=== PATIENT | female | born 1945 | race Two or more races ===

== ENCOUNTER → 2017-02-17 | Day surgery (SDC) | payer MEDICARE, MEDICAID ==
[~2017-02-17] MED LIST: FLAX10003 PO; HYDROmorphone 2 MG/ML VIAL IV PRN; IV RINGERS,LACTATED 1000ML 1,000 ML IV SCH; LEVO50TA PO; LIDOCAINE 1% PF 2 ML VIAL. ID PRN; LIDOCAINE 2% PF Vial for OR 5 ML VIAL. ONE; MORPHINE SULFATE 2 MG/ML DISP.SYRIN. IV PRN; MULT-658 PO; ONDANSETRON PF 4 MG/2 ML VIAL. IV PRN; PROCHLORPERAZINE 10 MG/2 ML VIAL. IV PRN; PROPOFOL 40 ML IV ONE; fentaNYL PF VIAL 100 MCG/2 ML VIAL IV PRN
--- NOTE | 2017-02-17 09:10 | PDOC1 ---
HISTORY & PHYSICAL H&P Sara Hopson 1945 01/25/2017 03:50 PM 05/08 R[facility] [address] [place] [address] Ph. [phone] Patient: Sara Hopson Date of : 1945 Date: 01/25/2017 3:50 PM Visit Type: Consult This 71 year old female presents for Screening colonoscopy. History of Present Illness: 1. Screening colonoscopy No prior screening. Denies risk factors. Pertinent negatives include abdominal pain, change in bowel habits, change in stool caliber, constipation, decreased appetite, diarrhea, melena, nausea, rectal bleeding, vomiting, weight gain and weight loss. Additional information: No family history of colon cancer , No family history of Crohn's/colitis and No NSAID/ASA use. PROBLEM LIST: Problem Description Onset Date Chronic Notes Knee pain, left 12/17/2014 Vitamin D deficiency 12/17/2014 Dyslipidemia 12/17/2014 PAST MEDICAL/SURGICAL HISTORY (Detailed) Disease/disorder Onset Date Management Date Comments Bilateral tubal ligation Cataract extraction 2007 OBSTETRIC HISTORY: Not currently . Medications (Active): Started Medication Directions Instruction Stopped 06/15/2015 Centrum Silver 0.4 mg-300 mcg-250 mcg tablet one tablet daily 08/19/2016 flaxseed oil 1,000 mg capsule one capsule twice a day. 06/26/2015 Synthroid 50 mcg tablet take 1 tablet by oral route every day 06/15/2015 Tylenol Extra Strength 500 mg tablet take 2 tablets by Oral route bid in AM and at bedtime 06/15/2015 Vitamin D3 1,000 unit capsule 1 daily Allergies: Ingredient Reaction Medication Name Comment NO KNOWN ALLERGIES REVIEW OF SYSTEMS System Neg/Pos Details Constitutional Negative Chills, fever, malaise, weight gain and weight loss. ENMT Negative Sore throat. Eyes Negative Double vision. Respiratory Negative Dyspnea and wheezing. Cardio Negative Chest pain and irregular heartbeat/palpitations. GI Positive See HPI. GI Negative Abdominal pain, change in bowel habits, change in stool caliber, constipation, decreased appetite, diarrhea, melena, nausea, see HPI, rectal bleeding and vomiting. Negative Dysuria and hematuria. Endocrine Negative Cold intolerance and heat intolerance. Psych Negative Anxiety. Integumentary Negative Hives and rash. MS Negative Joint pain. Fidencio/Lymph Negative Easy bleeding and easy bruising. Allergic/Immuno Negative Food allergies. VITAL SIGNS Time BP mm/Hg Pulse /min Resp /min Temp F Ht ft Ht in Ht cm Wt lb Wt kg BMI kg/ m2 BSA m2 O2 Sat% 3:56 PM 124/78 79 98.3 0.0 62.00 157.48 135.00 61.235 24.69 93 Time Measured by 3:56 PM Sania Prado PHYSICAL EXAM: Exam Findings Details Constitutional Normal Well developed. Eyes Normal Conjunctiva - Right: Normal, Left: Normal. Sclera - Right: Normal, Left: Normal. Nasopharynx Normal Lips/teeth/gums - Normal. Neck Exam Normal Inspection - Normal. Thyroid gland - Normal. Respiratory Normal Inspection - Normal. Auscultation - Normal. Cardiovascular Normal Regular rate and rhythm. No murmurs, gallops, or rubs. Vascular Normal Pulses - Carotids: Normal, Femoral: Normal, Dorsalis pedis: Normal. Abdomen Normal Inspection - Normal. Anterior palpation - No guarding. No abdominal tenderness. No hepatic enlargement. No splenic enlargement. No hernia. No Ascites. Skin Normal Inspection - Normal. Extremity Normal No edema. Psychiatric Normal Oriented to time, place, person, and situation. Appropriate mood and effect. Assessment/Plan # Detail Type Description 1. Assessment Encounter for screening colonoscopy (Z12.11). Patient Plan schedule colonoscopy at Plan Orders Further diagnostic evaluations ordered today include(s) Colonoscopy to be performed today. She is to schedule a follow-up visit with Bailey Hopson MD upon completion of work-up Electronically signed by: Bailey Hopson MD 01/27/2017 10:12 AM Document generated by: Bailey Hopson 01/27/2017 10:12 AM Lonnie Douglas MD, Family Practice; Jonatan Reynolds MD Internal Medicine; Cassidy Everett MD, Internal Medicine; Sunday Hopson MD Internal Medicine; Bailey Hopson MD, Gastroenterology; Nehemias Harmon MD, Rheumatology, S. Chirag Irby, Physical Medicine/Latashaab Marbella Abreu APRN ------ 02/17/17 Patient seen and examined. No change in H&P. BAILEY HOPSON MD Feb 17, 2017 09:10
[2017-02-17 10:55] VITALS: BP 141/91
== END | disposition home or self-care (01) ==
LOC: ENDOS 08:36
PROVIDERS: ATTEND Internal Medicine Gastroenterology
DX: Z12.11 Encounter for screening for malignant neoplasm of colon (principal); K57.30 Diverticulosis of large intestine without perforation or abscess without bleeding; E78.00 Pure hypercholesterolemia, unspecified; Z98.51 Tubal ligation status; Z87.39 Personal history of other diseases of the musculoskeletal system and connective tissue; Z86.39 Personal history of other endocrine, nutritional and metabolic disease; E03.9 Hypothyroidism, unspecified
CPT/HCPCS: G0121; J2704; J2001